=== PATIENT | female | born 1960 | race Caucasian/White ===

== ENCOUNTER 2024-12-04 18:12 | Emergency (ER) | payer OTHER ==
[~2024-12-04] VITALS: Ht 167.6 cm; Wt 76.4 kg
[2024-12-04 18:18] VITALS: TEMP 97.6
[2024-12-04 20:05] LABS: PLATELET COUNT, AUTOMATED 235 10^3/uL (150-450)
[2024-12-04 20:35] LABS: CALCIUM LEVEL 9.2 MG/DL (8.3-10.6); CARBON DIOXIDE LEVEL 28 MMOL/L (20-31); CHLORIDE LEVEL 103 MMOL/L (98-107); CREATININE FOR GFR 0.93 MG/DL (0.55-1.30); GLOMERULAR FILTRATION RATE 69.1 (>45); POTASSIUM SERUM 4.4 MMOL/L (3.5-5.1); SODIUM LEVEL 140 MMOL/L (136-145)
[2024-12-04] MEDS ORDERED: ISOVUE-370 76% 100 ML VIAL As Ordered ONE (20:38)
[2024-12-04] MEDS: KETOROLAC 30 MG/ML 1 ML VIAL IV ONE (22:50)
[2024-12-04 23:00] VITALS: BP 142/68
[2024-12-04 23:12] VITALS: O2SAT 97
[2024-12-04 23:19] LABS: CK-MB VALUE MASS 1.0 NG/ML (<3.6)
[2024-12-04] MEDS ORDERED: ACETAMINOPHEN 500 MG TAB PO ONE (23:30)
[2024-12-04] MEDS ORDERED: IBUPROFEN 600 MG TAB PO ONE (23:30)
[2024-12-04] MEDS ORDERED: KETO-204 PO (23:35)
[2024-12-04 23:49] LABS: CPK CREATINE PHOSPHOKINASE 86 U/L (34-145); MB/CK RELATIVE INDEX 1.16 (< OR =4)
== END 2024-12-04 23:50 | disposition home or self-care (01) ==
LOC: M ED 18:12
DX: R07.89 Other chest pain (principal); E11.9 Type 2 diabetes mellitus without complications; I10 Essential (primary) hypertension; Z79.2 Long term (current) use of antibiotics
CPT/HCPCS: 71046; 71260; 80048; 82550; 82553; 84484; 85027; 93005; 96374; 99284; J1885; Q9967